=== PATIENT | female | born 1955 | race Caucasian/White ===

== ENCOUNTER 2017-11-23 09:49 | Inpatient (IN) | payer MEDICARE, MEDICAID ==
[~2017-11-23] VITALS: Ht 160 cm; Wt 64.9 kg
[2017-11-23 12:08] LABS: AMPHET/METH SCREEN,URINE NEGATIVE (NEGATIVE); BARBITURATE SCREEN, URINE NEGATIVE (NEGATIVE); BENZODIAZEPINES SCREEN,URINE NEGATIVE (NEGATIVE); CANNABINOID SCREEN,URINE NEGATIVE (NEGATIVE); COCAINE SCREEN,URINE NEGATIVE (NEGATIVE); METHADONE SCREEN, URINE NEGATIVE (NEGATIVE); OPIATE SCREEN,URINE NEGATIVE (NEGATIVE)
[2017-11-23 12:09] LABS: PHENCYCLIDINE SCREEN,URINE NEGATIVE (NEGATIVE)
[2017-11-23 12:14] LABS: BILIRUBIN,URINE NEGATIVE (NEGATIVE); GLUCOSE, URINE (UA) NEGATIVE (NEGATIVE); KETONES,URINE NEGATIVE (NEGATIVE); LEUKOCYTE ESTERASE ,URINE NEGATIVE (NEGATIVE); NITRATE,URINE NEGATIVE (NEGATIVE); OCCULT BLOOD,URINE NEGATIVE (NEGATIVE); PROTEIN,URINE NEGATIVE (NEGATIVE); UROBILINOGEN,URINE 0.2 mg/dL (<=1.0)
[2017-11-23 12:19] LABS: APPEARANCE,URINE HAZY (CLEAR)
[2017-11-23 12:27] LABS: BASOPHILS % (AUTO) 0.7 % (0.0-2.0); HEMATOCRIT 40.3 % (36-46); HEMOGLOBIN 13.6 g/dL (12.0-16.0); LYMPHOCYTES # (AUTO) 1.4 K/uL (1.0-4.8); LYMPHOCYTES % (AUTO) 16.2 % (22.0-44.0); MEAN CORPUSCULAR HEMOGLOBIN 29.7 pg (26.0-34.0); MEAN CORPUSCULAR HGB CONC 33.8 G/dL (31.0-37.0); MEAN CORPUSCULAR VOLUME 88 fL (80-100); MONOCYTES # (AUTO) 0.5 K/uL (0.1-1.0); MONOCYTES % (AUTO) 5.9 % (2.0-9.0); NEUTROPHILS # (AUTO) 6.4 K/uL (1.8-7.7); NEUTROPHILS % (AUTO) 75.2 % (40.0-70.0); PLATELET COUNT (AUTO) 131 K/uL (150-450); RED BLOOD CELL COUNT(AUTO) 4.59 MIL/uL (4.00-5.20); RED CELL DISTRIBUTION WIDTH 13.7 % (11.5-14.5)
[2017-11-23 12:52] LABS: ANION GAP 8 mmol/L (8-16); CALCIUM, TOTAL 9.3 mg/dL (8.8-10.5); CARBON DIOXIDE 28 mmol/L (22-29); CHLORIDE 104 mmol/L (98-107); CREATININE 0.69 mg/dL (0.60-1.30); GLOMERULAR FILTR. RATE CALC > 60 mL/min (>60); GLUCOSE,RANDOM 86 mg/dL (70-110); POTASSIUM 4.4 mmol/L (3.5-5.1); SODIUM SERUM 140 mmol/L (136-145); UREA NITROGEN, BLOOD 12 mg/dL (7-18)
[2017-11-23 12:57] LABS: ALANINE AMINOTRANSFERASE 32 U/L (12-78); ALBUMIN 3.7 g/dL (3.4-5.0); ALKALINE PHOSPHATASE 76 U/L (46-116); ASPARTATE AMINOTRANSFERASE 26 U/L (15-37); BILIRUBIN,TOTAL 0.4 mg/dL (0.1-1.0); TOTAL PROTEIN, SERUM 7.1 g/dL (6.4-8.2)
[2017-11-23] MEDS ORDERED: HALOPERIDOL 5 MG TABLET PO PRN (14:15)
[2017-11-23] MEDS ORDERED: LORazepam 2 MG TABLET PO PRN (14:15)
[2017-11-23] MEDS ORDERED: ZOLPIDEM TARTRATE 10 MG TABLET PO PRN (14:15)
[2017-11-23 18:31] VITALS: BP 149/94
[2017-11-23] MEDS ORDERED: INFLUENZA VIRUS VACCINE QVS 2017-18 (3YR+)/PF 60 MCG/0.5 ML SYRINGE IM ONE (19:15)
[2017-11-23] MEDS ORDERED: PNEUMOCOCCAL VACCINE POLYVALENT 0.5 ML VIAL [PPSV23] IM ONE (19:15)
[2017-11-23] MEDS ORDERED: AmLODIPine BESYLATE 5 MG TABLET PO ONE (20:15)
[2017-11-23 21:26] VITALS: BP 118/67
[2017-11-24 05:32] VITALS: BP 122/76
[2017-11-24 08:42] LABS: CHOL/HDL RATIO 2.8 (3.9-5.7)
[2017-11-24] MEDS: AmLODIPine BESYLATE 2.5 MG TABLET PO SCH (09:39)
[2017-11-24 09:48] VITALS: BP 125/64
[2017-11-24 16:53] VITALS: BP 134/70
[2017-11-25 06:26] VITALS: BP 124/63
[2017-11-25 08:41] VITALS: BP 139/81
[2017-11-25] MEDS: AmLODIPine BESYLATE 2.5 MG TABLET PO SCH (09:09)
[2017-11-25] MEDS ORDERED: ACETAMINOPHEN 650 MG RECTAL SUPPOSITORY PR PRN (15:45)
[2017-11-25] MEDS ORDERED: ACETAMINOPHEN 325 MG TABLET PO PRN (16:15)
[2017-11-25 16:30] VITALS: BP 119/66
[2017-11-25] MEDS: IBUPROFEN 400 MG TABLET PO PRN (22:05)
[2017-11-26 08:20] VITALS: BP 160/92
[2017-11-26] MEDS: AmLODIPine BESYLATE 2.5 MG TABLET PO SCH (09:55)
[2017-11-26 10:30] VITALS: BP 137/79
[2017-11-26 16:18] VITALS: BP 139/75
[2017-11-27 08:34] VITALS: BP 123/69
[2017-11-27] MEDS: AmLODIPine BESYLATE 2.5 MG TABLET PO SCH (08:42)
[2017-11-27] MEDS: RisperiDONE 1 MG TABLET PO SCH ×2 (08:42→16:41)
[2017-11-27 16:07] VITALS: BP 123/94
[2017-11-28 08:31] VITALS: BP 115/63
[2017-11-28] MEDS: RisperiDONE 1 MG TABLET PO SCH ×2 (09:20→16:20)
[2017-11-28] MEDS: AmLODIPine BESYLATE 2.5 MG TABLET PO SCH (09:20)
[2017-11-28 16:43] VITALS: BP 132/80
[2017-11-29 08:43] VITALS: BP 127/75
[2017-11-29] MEDS: AmLODIPine BESYLATE 2.5 MG TABLET PO SCH (09:26)
[2017-11-29] MEDS: RisperiDONE 1 MG TABLET PO SCH ×2 (09:26→16:35)
[2017-11-29 16:36] VITALS: BP 129/79
[2017-11-30 03:45] VITALS: BP 124/74
[2017-11-30 08:46] VITALS: BP 122/69
[2017-11-30] MEDS: RisperiDONE 1 MG TABLET PO SCH ×2 (09:12→16:27)
[2017-11-30] MEDS: AmLODIPine BESYLATE 2.5 MG TABLET PO SCH (09:13)
[2017-11-30 16:20] VITALS: BP 136/75
[2017-12-01 08:25] VITALS: BP 134/67
[2017-12-01] MEDS: RisperiDONE 1 MG TABLET PO SCH ×2 (08:41→16:18)
[2017-12-01] MEDS: AmLODIPine BESYLATE 2.5 MG TABLET PO SCH (08:41)
[2017-12-01 16:41] VITALS: BP 131/79
[2017-12-01 21:11] VITALS: BP 132/80
[2017-12-01] MEDS: IBUPROFEN 400 MG TABLET PO PRN (21:13)
[2017-12-02 05:00] VITALS: BP 128/76
[2017-12-02] MEDS: RisperiDONE 1 MG TABLET PO SCH ×2 (08:21→16:30)
[2017-12-02] MEDS: AmLODIPine BESYLATE 2.5 MG TABLET PO SCH (08:21)
[2017-12-02 09:00] VITALS: BP 123/72
[2017-12-02 16:04] VITALS: BP 118/74
[2017-12-02] MEDS: IBUPROFEN 400 MG TABLET PO PRN (19:06)
[2017-12-02 19:07] VITALS: BP 121/68
[2017-12-03 08:40] VITALS: BP 128/71
[2017-12-03] MEDS: RisperiDONE 1 MG TABLET PO SCH ×2 (09:12→16:21)
[2017-12-03] MEDS: AmLODIPine BESYLATE 2.5 MG TABLET PO SCH (09:12)
[2017-12-03] MEDS ORDERED: RISP1 PO (13:59)
[2017-12-03] MEDS ORDERED: AMLO2.5T PO (13:59)
== END 2017-12-03 16:40 | disposition home or self-care (01) | DRG 885 ==
LOC: EMS 09:52 → B3A 16:45
PROVIDERS: ADMIT Psychiatry & Neurology Psychiatry; ATTEND Psychiatry & Neurology Psychiatry
DX: F25.9 Schizoaffective disorder, unspecified (principal); F17.200 Nicotine dependence, unspecified, uncomplicated; I10 Essential (primary) hypertension; Z71.6 Tobacco abuse counseling; I25.2 Old myocardial infarction; Z87.01 Personal history of pneumonia (recurrent); Z86.73 Personal history of transient ischemic attack (TIA), and cerebral infarction without residual deficits
CPT/HCPCS: 99285; G0480